=== PATIENT | male | born 1975 | race Caucasian/White ===

== ENCOUNTER → 2018-04-19 | Outpatient (REF) ==
--- NOTE | 2018-04-19 16:30 | Diagnostic Imaging Report ---
INDICATION: Laceration to the forearm. TIME OF EXAMINATION: 12:58 p.m. FINDINGS: Two views of the right forearm were obtained. The radius and ulna appear intact. No fracture is seen. Alignment at the wrist and elbow is normal. Soft tissues are unremarkable. No radiopaque soft tissue foreign body is seen. IMPRESSION: No acute abnormalities detected. Dictated by: Dictated on workstation # [id number]
== END | disposition home or self-care (01) ==
LOC: OCC 11:46
PROVIDERS: ATTEND Nurse Practitioner Family
CPT/HCPCS: 73090

== ENCOUNTER 2018-05-23 10:31 | Emergency (ER) | payer BC ==
[~2018-05-23] VITALS: Ht 177.8 cm; Wt 74.4 kg
[2018-05-23] MEDS ORDERED: FAMOTIDINE 20 MG (PEPCID) TABLET PO STA (10:43)
[2018-05-23] MEDS ORDERED: LACTATED RINGERS 1,000 ML IV STA (10:43)
[2018-05-23] MEDS ORDERED: ANTACID SUSP 30 ML UDC (MYLANTA) PO ONE (10:45)
[2018-05-23] MEDS ORDERED: LIDOCAINE 2% VISCOUS 15 ML UDC PO ONE (10:45)
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
--- NOTE | 2018-05-23 10:50 | ED Abdominal Pain ---
General Stated Complaint: N/V/D Source of Information: Patient, Spouse Exam Limitations: No Limitations History of Present Illness Date Seen by Provider: May 23, 2018 Time Seen by Provider: 10:38 Initial Comments The patient presents to the ER by private conveyance with his spouse and chief complaint that for the past for 5 days now he's been having nausea vomiting and abdominal pain that waxes and wanes from bending him over in pain down to just a dull ache in his epigastric region. He has no history of pancreatitis, abdominal surgery or trauma. He's trying to go to work up until Wednesday and when he tried to go back to work today he couldn't do it so they went to see Dr. Tobias his primary care doctor who told him to come to the ER for evaluation and fluids. Patient has not had any fevers or chills but he has had nausea vomiting and diarrhea and 10 pound weight loss over the past week. He does drink about for 5 days a week usually 45 beers at a time. He does not have any other significant medical history such as hypertriglyceridemia, diabetes etc. He's been drinking Sprite this morning but last food was yesterday. Allergies and Home Medications Allergies Coded Allergies: Penicillins (Verified Allergy, Intermediate, 12/11/12) Patient Home Medication List Home Medication List Reviewed: Yes Review of Systems Review of Systems Constitutional: No chills, No diaphoresis, No fever EENTM: No Blurred Vision, No Double Vision Respiratory: Denies Cough, Denies Shortness of Air Cardiovascular: Denies Chest Pain, Denies Lightheadedness Gastrointestinal: See HPI; Denies Abdomen Distended; Abdominal Pain, Diarrhea, Nausea, Poor Appetite, Vomiting Musculoskeletal: No back pain, No joint pain Skin: No pruritus, No rash Past Zlbmwlt-Rbbtvg-Ecxwdl Hx Patient Social History Alcohol Use: Regular Use Alcohol Beverage of Choice: Beer Recreational Drug Use: No Smoking Status: Never a Smoker Seasonal Allergies Seasonal Allergies: Yes Past Medical History Reproductive Disorders: No Sexually Transmitted Disease: No HIV/AIDS: No Adverse Reaction/Blood Tranf: No Physical Exam Vital Signs Vital Signs - First Documented 05/23/18 10:34 Temp 96.9 Pulse 75 Resp 16 B/P (MAP) 118/103 (108) Pulse Ox 99 O2 Delivery Room Air Capillary Refill : Height/Weight/BMI Height: '" Weight: lbs. oz. kg; BMI Method:Stated General Appearance: WD/WN, mild distress HEENT: PERRL/EOMI, pharynx normal Neck: non-tender, full range of motion, normal inspection Respiratory: chest non-tender, lungs clear, normal breath sounds, no respiratory distress, no accessory muscle use Cardiovascular: normal peripheral pulses, regular rate, rhythm Peripheral Pulses: 2+ Radial Pulses (R), 2+ Radial Pulses (L) Gastrointestinal: normal bowel sounds, guarding (right upper quadrant and midepigastric); No rebound; tenderness (Leigh's sign positive but negative for any mesenteric signs) Extremities: non-tender, normal inspection, normal capillary refill Neurologic/Psychiatric: alert, normal mood/affect, oriented x 3 Skin: normal color, warm/dry Progress/Results/Core Measures Results/Orders Lab Results Laboratory Tests Test 05/23/18 10:45 Range/Units White Blood Count 4.8 4.3-11.0 10^3/uL Red Blood Count 5.20 4.35-5.85 10^6/uL Hemoglobin 16.3 13.3-17.7 G/DL Hematocrit 45 40-54 % Mean Corpuscular Volume 87 80-99 FL Mean Corpuscular Hemoglobin 31 25-34 PG Mean Corpuscular Hemoglobin Concent 36 32-36 G/DL Red Cell Distribution Width 12.8 10.0-14.5 % Platelet Count 206 130-400 10^3/uL Mean Platelet Volume 10.2 7.4-10.4 FL Neutrophils (%) (Auto) 58 42-75 % Lymphocytes (%) (Auto) 20 12-44 % Monocytes (%) (Auto) 17 H 0-12 % Eosinophils (%) (Auto) 5 0-10 % Basophils (%) (Auto) 1 0-10 % Neutrophils # (Auto) 2.8 1.8-7.8 X 10^3 Lymphocytes # (Auto) 1.0 1.0-4.0 X 10^3 Monocytes # (Auto) 0.8 0.0-1.0 X 10^3 Eosinophils # (Auto) 0.2 0.0-0.3 10^3/uL Basophils # (Auto) 0.0 0.0-0.1 10^3/uL Sodium Level 140 135-145 MMOL/L Potassium Level 3.6 3.6-5.0 MMOL/L Chloride Level 102 98-107 MMOL/L Carbon Dioxide Level 23 21-32 MMOL/L Anion Gap 15 H 5-14 MMOL/L Blood Urea Nitrogen 12 7-18 MG/DL Creatinine 0.89 0.60-1.30 MG/DL Estimat Glomerular Filtration Rate > 60 BUN/Creatinine Ratio 13 Glucose Level 109 H 70-105 MG/DL Calcium Level 9.4 8.5-10.1 MG/DL Corrected Calcium 9.0 8.5-10.1 MG/DL Magnesium Level 2.0 1.8-2.4 MG/DL Total Bilirubin 0.7 0.1-1.0 MG/DL Aspartate Amino Transf (AST/SGOT) 16 5-34 U/L Alanine Aminotransferase (ALT/SGPT) 18 0-55 U/L Alkaline Phosphatase 63 40-136 U/L Total Protein 7.4 6.4-8.2 GM/DL Albumin 4.5 3.2-4.5 GM/DL Lipase 20 8-78 U/L My Orders Orders - [place] Cbc With Automated Diff (05/23/18 10:43) Comprehensive Metabolic Panel (05/23/18 10:43) Lipase (05/23/18 10:43) Magnesium (05/23/18 10:43) Us Gallbladder 81639 (05/23/18 10:43) Lidocaine 2% Viscous 15 Ml (Xylocaine Vi (05/23/18 10:45) Famotidine Tablet (Pepcid Tablet) (05/23/18 10:43) Antacid Suspension (Mylanta Suspension (05/23/18 10:45) Lactated Ringers (Lr 1000 Ml Iv Solution (05/23/18 10:43) Saline Lock/Iv-Start (05/23/18 10:43) Saline Lock/Iv-Start (05/23/18 10:43) Ketorolac Injection (Toradol Injection) (05/23/18 11:45) Ondansetron Injection (Zofran Injectio (05/23/18 11:45) Ct Abdomen/Pelvis W (05/23/18 11:42) Iohexol Injection (Omnipaque 350 Mg/Ml 1 (05/23/18 12:00) Pharmacy Communication (Pharmacy Communi (05/23/18 11:47) Ns (Ivpb) (Sodium Chloride 0.9%) (05/23/18 12:00) Medications Given in ED Current Medications Medications Dose Ordered Sig/Sylvia Route Start Time Stop Time Status Last Admin Dose Admin Al Hydrox/Mg Hydrox/Simethicone 30 ml ONCE ONCE PO 05/23/18 10:45 05/23/18 10:46 DC 05/23/18 10:57 30 ML Iohexol 100 ml ONCE ONCE IV 05/23/18 12:00 05/23/18 12:01 DC 05/23/18 12:43 100 ML Ketorolac Tromethamine 15 mg ONCE ONCE IVP 05/23/18 11:45 05/23/18 11:46 DC 05/23/18 12:35 15 MG Lidocaine HCl 15 ml ONCE ONCE PO 05/23/18 10:45 05/23/18 10:46 DC 05/23/18 10:57 15 ML Ondansetron HCl 4 mg ONCE ONCE IVP 05/23/18 11:45 05/23/18 11:46 DC 05/23/18 12:35 4 MG Sodium Chloride 250 ml ONCE ONCE IV 05/23/18 12:00 05/23/18 12:01 DC 05/23/18 12:43 80 ML Vital Signs/I&O 05/23/18 10:34 Temp 96.9 Pulse 75 Resp 16 B/P (MAP) 118/103 (108) Pulse Ox 99 O2 Delivery Room Air Progress Progress Note #1: Time: 10:49 Progress Note Pancreatitis versus gastritis versus cholecystitis versus diverticulitis versus viral gastroenteritis with colitis. Most of his pain seems to be right upper quadrant and he certainly has a positive Leigh sign so we'll start with an ultrasound of his right upper quadrant and get some labs to include a lipase and magnesium since she's been having a lot of nausea vomiting. We'll give him a liter fluids which would be between a 10 and 20 mL/kg fluid bolus. Progress Note #2: Time: 12:26 Progress Note Lipase is normal. GI cocktail made no difference in his symptoms. Ultrasound reveals sludge and could be a hint towards biliary dyskinesis but he still having significant pains or any give him some Toradol and get a CT of the abdomen and pelvis with contrast. Diagnostic Imaging Diagonstic Imaging: Ultrasound Plain Films/CT/US/NM/MRI: abdomen (RUQ) Comments [facility] [place], [place] NAME: SINA [facility] REC#: [id number] PT STATUS: REG ER : 1975 PHYSICIAN: [place] MD ADMIT DATE: 05/23/18/ER Draft Date of Exam:05/23/18 US GALLBLADDER [id number] Clinical indication: Patient with abdominal pain. Exam: Right upper quadrant ultrasound. Comparison: None. Findings: Bowel gas obscures portions of this exam. Portion of the pancreatic tail is obscured by overlying bowel gas. Pancreas is otherwise unremarkable. The liver has normal echogenicity and echotexture. Liver surface is smooth. Liver is enlarged measuring 18.5 cm in craniocaudal dimension. There is no liver mass seen. There is no intrahepatic or extrahepatic ductal dilation. The common bile duct measures 2.5 mm. The gallbladder is partially fluid-filled. There is layering sludge seen within the gallbladder. There are no stones. The gallbladder wall is within normal limits. There is no pericholecystic fluid and no sonographic Leigh sign. There is no abdominal ascites. Limited visualization of the abdominal aorta and IVC show no significant abnormality. IMPRESSION: 1: Limited exam due to overlying bowel gas. 2: There is gallbladder sludge. There is no ultrasound evidence of cholecystitis. 3: Mild hepatomegaly. Dictated on workstation # [id number] Dict: 05/23/18 1143 Trans: 05/23/18 1201 [facility] [id number] Interpreted by: DEVIN VENTURA MD Electronically signed by: [facility]: CT (with contrast) Plain Films/CT/US/NM/MRI: abdomen, pelvis Comments [facility] [place], [place] NAME: SINA MALAVE [facility] REC#: [id number] PT STATUS: REG ER : 1975 PHYSICIAN: [place] MD ADMIT DATE: 05/23/18/ER Draft Date of Exam:05/23/18 CT ABDOMEN/PELVIS W INDICATION: Upper abdominal pain and nausea and vomiting CT of the abdomen and pelvis obtained with IV contrast bolus. There is no prior study for comparison. Visualized portions of the lung bases are clear. There were no pleural fluid collections. There is no free intraperitoneal air. The liver shows no focal lesions. Gallbladder is unremarkable. The spleen, adrenals, and pancreas appear normal. Kidneys bilaterally appear unremarkable. There is no retroperitoneal mass or adenopathy. There is no ascites or abnormal fluid collection. Visualized bowel loops demonstrate diffuse thickening of the right colon. The appendix appears unremarkable. The distal ileum and small bowel appear unremarkable. IMPRESSION: Diffuse thickening of the right colon compatible with a right-sided colitis. The appendix itself appears unremarkable. There is no overt bowel obstruction. Consider colonoscopy or contrast enema as clinically warranted. Dictated on workstation # [id number] Dict: 05/23/18 1258 Trans: 05/23/18 1306 [facility] [id number] Interpreted by: KARENA VANEGAS MD Electronically signed by: Reviewed: Reviewed by Me Departure Impression Primary Impression: Colitis Disposition: 01 HOME, SELF-CARE Condition: Improved Departure-Patient Inst. Decision time for Depature: 13:37 Referrals: SHILA TOBIAS DO (PCP/Family) Primary Care Physician Patient Instructions: Diverticulitis (DC) Add. 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 Start a clear liquid diet and advance it as you tolerated. Take Zofran 1 tablet every 6 hours as needed for nausea. yard supervisor cotton gin the probiotics from the pharmacy and take one tablet twice a day for the next 2-4 weeks. Follow-up with primary care at the end of this week or early next week. Use Tylenol and Motrin for pain followed by the hydrocodone every 6 hours as needed for breakthrough pain. Return to the ER if you have fever about 102.5, intractable abdominal pain or nausea or other worrisome symptoms. Scripts Ondansetron (Ondansetron Odt) 4 Mg Tab.rapdis 4 MG PO Q6H PRN for NAUSEA/VOMITING, #8 TAB 0 Refills Prov: [place] 05/23/18 Ciprofloxacin HCl (Ciprofloxacin HCl) 500 Mg Tablet 500 MG PO BID for 7 Days, #14 TAB 0 Refills Prov: [place] 05/23/18 Metronidazole (Metronidazole) 500 Mg Tablet 500 MG PO Q8H for 7 Days, #21 TAB 0 Refills Prov: [place] 05/23/18 Hydrocodone Bit/Acetaminophen (Hydrocodone/Acetaminophen 5/325mg Tablet) 1 Tab Tab 1 EACH PO Q4-6HR PRN for PAIN-MODERATE MDD 10 for 7 Days, #12 TAB 0 Refills Prov: [place] 05/23/18 Work/School Note: Work Release Form Date Seen in the Emergency Department: May 23, 2018 Return to Work: May 26, 2018 Restrictions: No Restrictions Copy Copies To 1: SHILA TOBIAS DO [place] May 23, 2018 10:50
[2018-05-23 10:57] LABS: BASOPHILS % (AUTO) 1 % (0-10); EOSINOPHILS # (AUTO) 0.2 10^3/uL (0.0-0.3); EOSINOPHILS % (AUTO) 5 % (0-10); HEMATOCRIT 45 % (40-54); HEMOGLOBIN 16.3 G/DL (13.3-17.7); LYMPHOCYTES % (AUTO) 20 % (12-44); MEAN CORPUSCULAR HEMOGLOBIN 31 PG (25-34); MEAN CORPUSCULAR HGB CONC 36 G/DL (32-36); MEAN CORPUSCULAR VOLUME 87 FL (80-99); MEAN PLATELET VOLUME 10.2 FL (7.4-10.4); MONOCYTES # (AUTO) 0.8 X 10^3 (0.0-1.0); MONOCYTES % (AUTO) 17 % (0-12); NEUTROPHILS # (AUTO) 2.8 X 10^3 (1.8-7.8); NEUTROPHILS % (AUTO) 58 % (42-75); PLATELET COUNT 206 10^3/uL (130-400); RED CELL DISTRIBUTION WIDTH 12.8 % (10.0-14.5); WHITE BLOOD COUNT 4.8 10^3/uL (4.3-11.0)
[2018-05-23 11:16] LABS: ALANINE AMINOTRANSFERASE 18 U/L (0-55); ALBUMIN 4.5 GM/DL (3.2-4.5); ALKALINE PHOSPHATASE 63 U/L (40-136); BILIRUBIN,TOTAL 0.7 MG/DL (0.1-1.0); BUN/CREATININE RATIO 13; CALCIUM 9.4 MG/DL (8.5-10.1); CARBON DIOXIDE 23 MMOL/L (21-32); CHLORIDE 102 MMOL/L (98-107); CREATININE SERUM 0.89 MG/DL (0.60-1.30); GFR ESTIMATED > 60; GLUCOSE 109 MG/DL (70-105); LIPASE 20 U/L (8-78); POTASSIUM 3.6 MMOL/L (3.6-5.0); SODIUM 140 MMOL/L (135-145); TOTAL PROTEIN 7.4 GM/DL (6.4-8.2)
[2018-05-23] MEDS ORDERED: KETOROLAC 30 MG/ML VIAL IVP ONE (11:45)
[2018-05-23] MEDS ORDERED: ONDANSETRON 4 MG/2 ML (SDV) Z0FRAN IVP ONE (11:45)
[2018-05-23] MEDS ORDERED: NS 250 ML (IVPB) BAG IV ONE (12:00)
[2018-05-23] MEDS ORDERED: IOHEXOL 350 MG/ML 100 ML (OMNIPAQUE 350) VIAL IV ONE (12:00)
--- NOTE | 2018-05-23 12:01 | Diagnostic Imaging Report ---
Clinical indication: Patient with abdominal pain. Exam: Right upper quadrant ultrasound. Comparison: None. Findings: Bowel gas obscures portions of this exam. Portion of the pancreatic tail is obscured by overlying bowel gas. Pancreas is otherwise unremarkable. The liver has normal echogenicity and echotexture. Liver surface is smooth. Liver is enlarged measuring 18.5 cm in craniocaudal dimension. There is no liver mass seen. There is no intrahepatic or extrahepatic ductal dilation. The common bile duct measures 2.5 mm. The gallbladder is partially fluid-filled. There is layering sludge seen within the gallbladder. There are no stones. The gallbladder wall is within normal limits. There is no pericholecystic fluid and no sonographic Leigh sign. There is no abdominal ascites. Limited visualization of the abdominal aorta and IVC show no significant abnormality. IMPRESSION: 1: Limited exam due to overlying bowel gas. 2: There is gallbladder sludge. There is no ultrasound evidence of cholecystitis. 3: Mild hepatomegaly. Dictated by: Dictated on workstation # [id number]
--- NOTE | 2018-05-23 13:06 | Diagnostic Imaging Report ---
INDICATION: Upper abdominal pain and nausea and vomiting CT of the abdomen and pelvis obtained with IV contrast bolus. There is no prior study for comparison. Visualized portions of the lung bases are clear. There were no pleural fluid collections. There is no free intraperitoneal air. The liver shows no focal lesions. Gallbladder is unremarkable. The spleen, adrenals, and pancreas appear normal. Kidneys bilaterally appear unremarkable. There is no retroperitoneal mass or adenopathy. There is no ascites or abnormal fluid collection. Visualized bowel loops demonstrate diffuse thickening of the right colon. The appendix appears unremarkable. The distal ileum and small bowel appear unremarkable. IMPRESSION: Diffuse thickening of the right colon compatible with a right-sided colitis. The appendix itself appears unremarkable. There is no overt bowel obstruction. Consider colonoscopy or contrast enema as clinically warranted. Dictated by: Dictated on workstation # [id number]
[2018-05-23] MEDS ORDERED: ACHD5005 PO (13:41)
[2018-05-23] MEDS ORDERED: ONDA4TAB11 PO (13:41)
[2018-05-23] MEDS ORDERED: METR500T21 PO (13:41)
[2018-05-23] MEDS ORDERED: CIPR500T4 PO (13:41)
[2018-05-23 13:50] VITALS: BP 121/75
== END 2018-05-23 13:53 | disposition home or self-care (01) ==
LOC: EDUNIT# 10:31 → ER 10:32
DX: K52.9 Noninfective gastroenteritis and colitis, unspecified (principal); Z88.0 Allergy status to penicillin
CPT/HCPCS: 36415; 74177; 76705; 80053; 83690; 83735; 85025

== ENCOUNTER 2018-08-03 15:50 | Outpatient (CLI) | payer BC ==
[~2018-08-03] VITALS: Ht 177.8 cm; Wt 74.4 kg
[~2018-08-03 15:50] MED LIST: ACHD5005 PO; CIPR500T4 PO; METR-197 PO; ONDA4TAB11 PO
== END 2018-08-03 16:11 | disposition home or self-care (01) ==
LOC: PREOP 15:50
PROVIDERS: ATTEND Surgery
DX: Z01.818 Encounter for other preprocedural examination (principal)

== ENCOUNTER 2018-08-08 05:38 | Outpatient (CLI) | payer BC ==
[~2018-08-08] VITALS: Ht 177.8 cm; Wt 74.4 kg
[2018-08-08 08:36] LABS: BASOPHILS # (AUTO) 0.1 10^3/uL (0.0-0.1); BASOPHILS % (AUTO) 1 % (0-10); EOSINOPHILS # (AUTO) 0.3 10^3/uL (0.0-0.3); EOSINOPHILS % (AUTO) 4 % (0-10); HEMATOCRIT 45 % (40-54); HEMOGLOBIN 15.2 G/DL (13.3-17.7); LYMPHOCYTES # (AUTO) 1.9 X 10^3 (1.0-4.0); LYMPHOCYTES % (AUTO) 29 % (12-44); MEAN CORPUSCULAR HEMOGLOBIN 30 PG (25-34); MEAN CORPUSCULAR HGB CONC 34 G/DL (32-36); MEAN CORPUSCULAR VOLUME 88 FL (80-99); MONOCYTES # (AUTO) 0.6 X 10^3 (0.0-1.0); MONOCYTES % (AUTO) 8 % (0-12); NEUTROPHILS # (AUTO) 3.8 X 10^3 (1.8-7.8); NEUTROPHILS % (AUTO) 58 % (42-75); PLATELET COUNT 284 10^3/uL (130-400); RED BLOOD COUNT 5.06 10^6/uL (4.35-5.85); RED CELL DISTRIBUTION WIDTH 13.3 % (10.0-14.5); WHITE BLOOD COUNT 6.6 10^3/uL (4.3-11.0)
[2018-08-08 08:51] LABS: ALANINE AMINOTRANSFERASE 18 U/L (0-55); ALBUMIN 4.4 GM/DL (3.2-4.5); ALKALINE PHOSPHATASE 58 U/L (40-136); BILIRUBIN,TOTAL 0.8 MG/DL (0.1-1.0); BUN/CREATININE RATIO 13; CALCIUM 8.6 MG/DL (8.5-10.1); CARBON DIOXIDE 23 MMOL/L (21-32); CHLORIDE 107 MMOL/L (98-107); GFR ESTIMATED > 60; GLUCOSE 95 MG/DL (70-105); POTASSIUM 3.9 MMOL/L (3.6-5.0); SODIUM 141 MMOL/L (135-145); TOTAL PROTEIN 6.5 GM/DL (6.4-8.2)
[2018-08-10] MEDS ORDERED: ACHD5005 PO (12:02)
== END 2018-08-08 08:30 | disposition home or self-care (01) ==
LOC: PREOP 05:38
PROVIDERS: ATTEND Surgery
DX: Z01.812 Encounter for preprocedural laboratory examination (principal); Z11.2 Encounter for screening for other bacterial diseases; K82.8 Other specified diseases of gallbladder
CPT/HCPCS: 36415; 80053; 85025; 87081

== ENCOUNTER 2018-08-08 07:53 | Day surgery (SDC) | payer BC ==
[~2018-08-08] VITALS: Ht 177.8 cm; Wt 74.4 kg
[2018-08-08] MEDS ORDERED: NS IV 500 ML 500 ML ONE (07:57)
[2018-08-08] MEDS ORDERED: NS IV 500 ML 500 ML IV PRN (08:03)
[2018-08-08 08:05] VITALS: BP 125/79
[2018-08-08] MEDS ORDERED: fentaNYL INJECTION 100 MCG/2 ML AMP IVP ONE (08:15)
[2018-08-08] MEDS ORDERED: MIDAZOLAM 2 MG/2 ML (VERSED) VIAL IVP ONE (08:15)
--- NOTE | 2018-08-08 08:35 | Conscious Sedation/ASA ---
Conscious Sedation Pre-Proced Time 08:35 ASA Score 2 For ASA 3 and 4: Consider anesthesia and medical clearance. Also, for patients with a history of failed moderate sedation consider anesthesia. Airway Lungs Heart ASA score ASA 1: a normal healthy patient ASA 2: a patient with a mild systemic disease (mid diabetes, controlled hypertension, obesity ASA 3: a patient with a severe systemic disease that limits activity (angina , COPD, prior Myocardial infarction) ASA 4: a patient with an incapacitating disease that is a constant threat to life (CHF, renal failure) ASA 5: a moribund patient not expected to survive 24 hrs. (ruptured aneurysm) ASA 6: a declared brain patient whose organs are being harvested. For emergent operations, add the letter E after the classification Mallampati Classification Grade 1 Sedation Plan Discussed options with patient/fam The patient is an appropriate candidate to undergo the planned procedure, sedation, and anesthesia. The patient immediately re-assessed prior to indication. LOVE LAIRD MD Aug 08, 2018 08:35
[2018-08-08] MEDS ORDERED: fentaNYL INJECTION 100 MCG/2 ML AMP ONE ×2 (09:05)
[2018-08-08] MEDS ORDERED: MIDAZOLAM 2 MG/2 ML (VERSED) VIAL ONE ×5 (09:06)
--- NOTE | 2018-08-08 09:32 | Endo Procedure Record ---
Endo Procedure Report Date of Procedure Last Colonoscopy: No Aug 08, 2018 Surgeon (s) LOVE LAIRD MD Post Procedure/Op Diagnosis normal colonoscopy Procedure Performed colonoscopy to cecum Description of Procedure Anesthesia Type: Conscious Sedation Specimen(s) collected/removed none Description of the Procedure Indication for the procedure: This gentleman is scheduled to undergo cholecystectomy to address sludge in his gallbladder. When he presented with right-sided abdominal pain, a CT scan had been obtained, revealing thickening of the right colon. Therefore, he came in for colonoscopy for further evaluation. Informed consent was obtained after reviewing the procedure in detail. Description of the procedure: He was placed in left lateral position and his vital signs were monitored. Conscious sedation was achieved using Versed and fentanyl. Digital rectal examination was unremarkable. The colonoscope was then introduced into the rectum and advanced all the way up to the cecum. The quality of bowel preparation was reasonable. The scope was then withdrawn slowly and the mucosa examined in a systematic fashion. There was no abnormality. He tolerated the procedure well and was taken back to the nursing area in a stable condition. Impression: Right-sided abdominal pain, currently asymptomatic. Abnormal CT scan from a month ago. Normal colonoscopy. Copy Copies To 1: SHILA TOBIAS XAVIER M MD Aug 08, 2018 09:32
--- NOTE | 2018-08-08 09:33 | Discharge Inst-Simple/Standard ---
Discharge Inst-Standard Discharge Medications New, Converted or Re-Newed RX: Other Patient Instructions/Follow Up Plan of Care/Instructions/FU: to return for cholecystectomy as scheduled Activity as Tolerated: Yes Discharge Diet: No Restrictions LOVE LAIRD MD Aug 08, 2018 09:33
[2018-08-08 09:55] VITALS: BP 104/63
[2018-08-08 10:25] VITALS: BP 106/71
[2018-08-08 10:35] VITALS: BP 106/71
== END 2018-08-08 10:50 | disposition home or self-care (01) ==
LOC: ENDO 07:53
PROVIDERS: ATTEND Surgery
DX: R10.11 Right upper quadrant pain (principal); R93.3 Abnormal findings on diagnostic imaging of other parts of digestive tract; K80.20 Calculus of gallbladder without cholecystitis without obstruction; Z88.0 Allergy status to penicillin

== ENCOUNTER 2018-08-10 08:46 | Day surgery (SDC) | payer BC ==
[~2018-08-10] VITALS: Ht 177.8 cm; Wt 74.4 kg
[2018-08-10] MEDS ORDERED: LACTATED RINGERS 1,000 ML IV PRN (08:52)
[2018-08-10] MEDS ORDERED: LEVOFLOXACIN 500 MG/100 ML IV 100 ML IV ONE (09:00)
[2018-08-10 09:05] VITALS: BP 108/72
[2018-08-10] MEDS ORDERED: CATHETER FLUSH 10 ML SYR IV PRN (09:15)
--- NOTE | 2018-08-10 10:16 | Progress Note-Pre Operative ---
Pre-Operative Progress Note H&P Reviewed The H&P was reviewed, patient examined and no changes noted. Date Seen by Provider: Jul 13, 2018 Time Seen by Provider: 15:00 Date H&P Reviewed: Aug 10, 2018 Time H&P Reviewed: 10:16 Pre-Operative Diagnosis: Sludge in GB LOVE LAIRD MD Aug 10, 2018 10:16
[2018-08-10] MEDS ORDERED: ONDANSETRON 4 MG/2 ML (SDV) Z0FRAN ONE ×2 (10:32→12:39)
[2018-08-10] MEDS ORDERED: ROCURONIUM 10 MG/ML 5 ML SYRINGE IV ONE (10:32)
[2018-08-10] MEDS ORDERED: fentaNYL INJECTION 100 MCG/2 ML AMP ONE ×3 (10:32→12:39)
[2018-08-10] MEDS ORDERED: LIDOCAINE PF 2% 5 ML (XYLOCAINE) VIAL ONE (10:32)
[2018-08-10] MEDS ORDERED: proPOfol 200 MG/20 ML (DIPRIVAN) VIAL IV ONE (10:32)
[2018-08-10] MEDS ORDERED: MIDAZOLAM 2 MG/2 ML (VERSED) VIAL ONE (10:32)
[2018-08-10] MEDS ORDERED: BUP/EPI 0.5% 1:200,000 (SENSORCAINE) 30 ML VIAL ONE (10:33)
[2018-08-10] MEDS ORDERED: SEVOFLURANE (ULTANE) 15 ML INHAL SOLN ONE ×5 (10:35→11:50)
[2018-08-10] MEDS ORDERED: DEXAMETHASONE 10 MG/ML (DECADRON) 1 ML VIAL ONE (10:35)
[2018-08-10] MEDS ORDERED: metroNIDAZOLE 500MG/100ML IVPB 100 ML ONE (10:59)
[2018-08-10] MEDS ORDERED: metroNIDAZOLE 500 MG/100 ML IVPB (PRE-MIX) IV ONE (11:30)
[2018-08-10] MEDS ORDERED: GLYCOPYRROLATE 0.2 MG/ML (ROBINUL) 2 ML VIAL ONE (11:50)
[2018-08-10] MEDS ORDERED: NEOSTIGMINE 1 MG/ML 5 ML SYRINGE ONE (11:50)
--- NOTE | 2018-08-10 12:01 | Operative Report ---
Operative Report Date of Procedure/Surgery Aug 10, 2018 Surgeon (s) LOVE LAIRD MD Mechanism Assembler (s): N/A Post-Operative Diagnosis same Procedure Performed robotic-assisted cholecystectomy Description of Procedure Anesthesia Type: General Estimated blood loss (mL): minimal Specimen(s) collected/removed gallbladder Description of the Procedure Indication for the procedure: This gentleman presented with symptoms due to sludge in his gallbladder. His LFTs were within normal limits. He was offered cholecystectomy using minimally invasive technique with robotic assistance. Informed consent was obtained after reviewing the operative details and complications of wound infection and bile leak. Description of the procedure: He was placed supine on the operating table and general anesthesia induced. Levaquin and Flagyl were administered intravenously as prophylaxis against wound infection. Sequential compression devices were placed around his legs, to minimize the risk of venous thrombosis. Abdomen was prepared and draped in the usual sterile manner. A 2 cm incision was made on his umbilicus itself and the fascia by blunt dissection. A 12 mm trocar was placed and pneumoperitoneum established using carbon dioxide insufflation, to an intra-abdominal pressure of 15 mmHg. Anatomy was visualized using a high definition, 3-dimensional laparoscope, associated with da Blue system. Under direct view, I placed an 8 mm trocar over each side of the abdomen, followed by a 5 mm trocar over the left side region. The patient was then turned into reverse Trendelenburg position, with the right side tilted up. The robotic system was then docked in place. The fundus of the gallbladder was retracted cephalad and the infundibulum grasped with Cadiere forceps. Peritoneum overlying Calot's triangle was incised using the hook cautery, delineating the cystic duct and the artery. Both were controlled between locking clips. Cholecystectomy was then completed using hook cautery. The gallbladder was then placed in an Endo Catch bag and removed via the umbilical trocar site. The fascia over this incision was closed using #1 Vicryl. Skin incisions were closed using 4-0 Vicryl, in a subcuticular fashion. 0.5 percent Marcaine with epinephrine was infiltrated along the incisions, both preemptively and at the conclusion of the operation. He tolerated the procedure well, was extubated in the operating room and taken to the recovery room in a stable condition. Findings of the Procedure See op report Allergies and Home Medications Allergies Coded Allergies: Penicillins (Verified Allergy, Intermediate, 12/11/12) Home Medications No Active Prescriptions or Reported Meds Patient Home Medication List Home Medication List Reviewed: Yes LOVE LAIRD MD Aug 10, 2018 12:01
[2018-08-10] MEDS ORDERED: ACHD5005 PO (12:02)
--- NOTE | 2018-08-10 12:03 | Discharge Inst-Simple/Standard ---
Discharge Inst-Standard Discharge Medications New, Converted or Re-Newed RX: RX on Chart Patient Instructions/Follow Up Plan of Care/Instructions/FU: Band-Aids off in 48 hours. Incentive spirometry. Follow-up in 3 weeks. Activity as Tolerated: Yes Discharge Diet: No Restrictions LOVE LAIRD MD Aug 10, 2018 12:03
[2018-08-10] MEDS ORDERED: fentaNYL INJECTION 100 MCG/2 ML AMP IVP ONE (12:30)
[2018-08-10] MEDS ORDERED: ONDANSETRON 4 MG/2 ML (SDV) Z0FRAN IVP PRN (12:30)
[2018-08-10] MEDS ORDERED: MEPERIDINE (DEMEROL) INJ 50 MG/ML IVP ONE (12:30)
[2018-08-10] MEDS ORDERED: PROMETHAZINE INJ 25 MG/ML (PHENERGAN) AMP IVP ONE (12:30)
[2018-08-10 13:15] VITALS: BP 124/81
[2018-08-10] MEDS ORDERED: HYDROcodone/APAP 5 MG/325 MG (LORTAB) TAB ONE (13:24)
[2018-08-10 13:45] VITALS: BP 109/65
[2018-08-10] MEDS ORDERED: HYDROcodone/APAP 5 MG/325 MG (LORTAB) TAB PO ONE (13:45)
--- OUTSIDE RECORDS SUMMARY | 2018-08-10 13:48 | XMS REPORT | Continuity of Care Document ---
Author Author [facility] Organization [facility] Address Unknown Phone Unavailable Allergies Active Description Code Type Severity Reaction Onset Reported/Identified Relationship to Patient Clinical Status Yes Penicillins [id number] Drug Allergy Moderate N/A 12/11/2012 Medications There [...] ACC 12/11/2012 SARA DUNHAM MD Ot V06.1 [id number], COMBINED [ 03/04/2016 SABRINA [place] DC Ot [...] SABRINA [place] DC Ot R07.81 PLEURODYNIA 12/27/2016 [place] DC, SABRINA J Ot M54.6 PAIN IN THORACIC SPINE 12/27/2016 [place] DC, SABRINA J Ot R07.81 PLEURODYNIA 05/23/2018 BEACHSABRINA CAMARILLO DC Ot M54.6 PAIN IN THORACIC SPINE 05/23/2018 [place] SHEILA, SABRINA J Ot R07.81 PLEURODYNIA 05/23/2018 ANANT CORONADO, AYAN J Ot K52.9 NONINFECTIVE GASTROENTERITIS AND COLITIS 05/23/2018 ANANT CORONADO, AYAN J Ot R11.2 NAUSEA WITH VOMITING, UNSPECIFIED 05/23/2018 ANANT CORONADO, AYAN J Ot Z88.0 ALLERGY STATUS TO PENICILLIN 05/25/2018 ANANT CORONADO, AYAN J Ot K52.9 NONINFECTIVE GASTROENTERITIS AND COLITIS 05/25/2018 ANANT CORONADO, AYAN J Ot R11.2 NAUSEA WITH VOMITING, UNSPECIFIED 05/25/2018 ANANT CORONADO, AYAN J Ot Z88.0 ALLERGY STATUS TO PENICILLIN 06/18/2018 SABRINA [place] DC Ot M54.6 PAIN IN THORACIC SPINE 06/18/2018 S[place]INA [place] DC Ot R07.81 PLEURODYNIA 07/18/2018 EITAN CORONADO, LOVE M Ot Z01.818 ENCOUNTER FOR OTHER PREPROCEDURAL EXAMIN 07/27/2018 S[place]INA [place] DC Ot M54.6 PAIN IN THORACIC SPINE 07/27/2018 S[place]INA [place] DC Ot R07.81 PLEURODYNIA 07/27/2018 EITAN CORONADO, LOVE M Ot Z01.818 ENCOUNTER FOR OTHER PREPROCEDURAL EXAMIN 08/01/2018 EITAN CORONADO, LOVE M Ot Z01.818 ENCOUNTER FOR OTHER PREPROCEDURAL EXAMIN 08/03/2018 SABRINA [place] DC Ot M54.6 PAIN IN THORACIC SPINE 08/03/2018 [place] DC J Ot R07.81 PLEURODYNIA 08/03/2018 EITAN CORONADO, LOVE M Ot Z01.818 ENCOUNTER FOR OTHER PREPROCEDURAL EXAMIN 08/03/2018 EITAN CORONADO, LOVE M Ot Z01.818 ENCOUNTER FOR OTHER PREPROCEDURAL EXAMIN 08/05/2018 S[place]INA [place] DC Ot M54.6 PAIN IN THORACIC SPINE 08/05/2018 S[place]INA [place] DC Ot R07.81 PLEURODYNIA Procedures There is no data. Results Test Result Range Complete blood count (CBC) with automated white blood cell (WBC) differential - 05/23/18 10:45 Blood leukocytes automated count (number/volume) 4.8 10*3/uL 4.3-11.0 Blood erythrocytes automated count (number/volume) 5.20 10*6/uL 4.35-5.85 Venous blood hemoglobin measurement (mass/volume) 16.3 g/dL 13.3-17.7 Blood hematocrit (volume fraction) 45 % 40-54 Automated erythrocyte mean corpuscular volume 87 [foz_us] 80-99 Automated erythrocyte mean corpuscular hemoglobin (mass per erythrocyte) 31 pg 25-34 Automated erythrocyte mean corpuscular hemoglobin concentration measurement ( mass/volume) 36 g/dL 32-36 Automated erythrocyte distribution width ratio 12.8 % 10.0-14.5 Automated blood platelet count (count/volume) 206 10*3/uL 130-400 Automated blood platelet mean volume measurement 10.2 [foz_us] 7.4-10.4 Automated blood neutrophils/100 leukocytes 58 % 42-75 Automated blood lymphocytes/100 leukocytes 20 % 12-44 Blood monocytes/100 leukocytes 17 % 0-12 Automated blood eosinophils/100 leukocytes 5 % 0-10 Automated blood basophils/100 leukocytes 1 % 0-10 Blood neutrophils automated count (number/volume) 2.8 10*3 1.8-7.8 Blood lymphocytes automated count (number/volume) 1.0 10*3 1.0-4.0 Blood monocytes automated count (number/volume) 0.8 10*3 0.0-1.0 Automated eosinophil count 0.2 10*3/uL 0.0-0.3 Automated blood basophil count (count/volume) 0.0 10*3/uL 0.0-0.1 Comprehensive metabolic panel - 05/23/18 10:45 Serum or plasma sodium measurement (moles/volume) 140 mmol/L 135-145 Serum or plasma potassium measurement (moles/volume) 3.6 mmol/L 3.6-5.0 Serum or plasma chloride measurement (moles/volume) 102 mmol/L 98-107 Carbon dioxide 23 mmol/L 21-32 Serum or plasma anion gap determination (moles/volume) 15 mmol/L 5-14 Serum or plasma urea nitrogen measurement (mass/volume) 12 mg/dL 7-18 Serum or plasma creatinine measurement (mass/volume) 0.89 mg/dL 0.60-1.30 Serum or plasma urea nitrogen/creatinine mass ratio 13 NRG Serum or plasma creatinine measurement with calculation of estimated glomerular filtration rate > NRG Serum or plasma glucose measurement (mass/volume) 109 mg/dL 70-105 Serum or plasma calcium measurement (mass/volume) 9.4 mg/dL 8.5-10.1 Serum or plasma total bilirubin measurement (mass/volume) 0.7 mg/dL 0.1-1.0 Serum or plasma alkaline phosphatase measurement (enzymatic activity/volume) 63 U/L 40-136 Serum or plasma aspartate aminotransferase measurement (enzymatic activity/ volume) 16 U/L 5-34 Serum or plasma alanine aminotransferase measurement (enzymatic activity/volume ) 18 U/L 0-55 Serum or plasma protein measurement (mass/volume) 7.4 g/dL 6.4-8.2 Serum or plasma albumin measurement (mass/volume) 4.5 g/dL 3.2-4.5 CALCIUM CORRECTED 9.0 mg/dL 8.5-10.1 Magnesium - 05/23/18 10:45 Magnesium 2.0 mg/dL 1.8-2.4 Lipase - 05/23/18 10:45 Lipase 20 U/L 8-78 Encounters ACCT No. Visit Date/Time Discharge Status Pt. Type Provider Facility Loc./Unit Complaint [id number] 08/03/2018 15:50:00 08/03/2018 16:11:00 DIS Outpatient LOVE LAIRD MD [facility] PREOP COLONOSCOPY [id number] 07/20/2018 08:00:00 07/20/2018 23:59:59 CLS Preadmit LOVE LAIRD MD [facility] SDC GALLBLADDER SLUDGE [id number] 07/18/2018 13:00:00 07/18/2018 23:59:59 CLS Preadmit LOVE LAIRD MD [facility] ENDO ABNORMAL CT [id number] 05/23/2018 10:32:00 05/23/2018 13:53:00 DIS Emergency AYAN [place] MD [facility] ER N/V/D [id number] 04/19/2018 11:46:00 04/19/2018 23:59:59 CLS Outpatient ASHWIN GRAHAM [facility] OCC LACERATION RIGHT ARM [id number] 03/03/2016 15:59:00 03/03/2016 23:59:59 CLS Outpatient YONG SOSA, SABRINA Smith [facility] RAD THORACIC PAIN W R LOWER ANTERIOR RIB PAIN [id number] 12/11/2012 13:09:00 12/11/2012 17:20:00 DIS Emergency ROLY CORONADO, SARA Vaughn [facility] ER FINGER LAC
[2018-08-10 14:15] VITALS: BP 120/72
[2018-08-10 15:15] VITALS: BP 119/87
[2018-08-10 15:35] VITALS: BP 119/87
--- NOTE | 2018-08-10 16:06 | Anesthesia-General Post-Op ---
General Patient Condition Mental Status/LOC: Same as Preop Cardiovascular: Satisfactory Nausea/Vomiting: Absent Respiratory: Satisfactory Pain: Controlled Complications: Absent Post Op Complications Complications None Follow Up Care/Instructions Patient Instructions None needed. Anesthesia/Patient Condition Patient Condition Patient was seen after the procedure and he was doing well, no complaints, stable vital signs, no apparent adverse anesthesia problems. JASPREET ARNOLD DO Aug 10, 2018 16:06
== END 2018-08-10 15:35 | disposition home or self-care (01) ==
LOC: SDC 08:46
PROVIDERS: ATTEND Surgery
DX: K80.10 Calculus of gallbladder with chronic cholecystitis without obstruction (principal); K82.8 Other specified diseases of gallbladder; Z88.0 Allergy status to penicillin